=== PATIENT | male | born 1980 | race Caucasian/White ===

== ENCOUNTER 2019-09-06 19:08 | Emergency (ER) | payer OTHER ==
[~2019-09-06] VITALS: Ht 175.3 cm; Wt 68.0 kg
--- NOTE | 2019-09-06 19:25 | NUR ---
BIBS. TO ER BED 7. AAOX4. NOT IN RESP DISTRESS. AMBUALTORY W/ A LIMP. C/O R FOOT 5TH DIGIT PAIN. PER PT HE KICK A WHEEL KAILEY THEN PAIN STARTED. PAIN IS RATED 7/10. NOTED REDNESS AND SWELLING. MD WAS AT BEDSIDE FOR EVAL. ORDERS RECEIVED NOTED AND CARRIED OUT
--- NOTE | 2019-09-06 19:25 | NUR ---
Note undone in EDM - 09/06/19 at 1927 by ANANYA BIBS. TO ER BED 7. AAOX4. NOT IN RESP DISTRESS. AMBUALTORY W/ A LIMP. C/O R 5TH DIGIT PAIN. PER PT HE KICK A WHEEL KAILEY THEN PAIN STARTED. PAIN IS RATED 7/10. NOTED REDNESS AND SWELLING. WAS AT BEDSIDE FOR EVAL. ORDERS RECEIVED NOTED AND CARRIED OUT
[2019-09-06] MEDS ORDERED: ACETAMINOPHEN ES 500 MG TABLET ONE (19:29)
[2019-09-06] MEDS ORDERED: ACETAMINOPHEN ES 500 MG TABLET PO ONE (19:30)
--- NOTE | 2019-09-06 19:34 | NUR ---
XRAY AT BEDSIDE
--- NOTE | 2019-09-06 20:05 | NUR ---
Patient discharged to home in stable condition. Written and verbal after care instructions given. Patient verbalizes understanding of instruction. Pt ambulatory with a steady gait
[2019-09-06 20:06] VITALS: BP 152/88
== END 2019-09-06 20:06 | disposition home or self-care (01) ==
LOC: ER 19:08
DX: S90.121A Contusion of right lesser toe(s) without damage to nail, initial encounter (principal); W22.8XXA Striking against or struck by other objects, initial encounter; Y93.89 Activity, other specified; Y92.89 Other specified places as the place of occurrence of the external cause; Y99.0 Civilian activity done for income or pay
CPT/HCPCS: 73630-TC